=== PATIENT | male | born 1990 | race Caucasian/White ===

== ENCOUNTER 2024-01-12 09:46 | Emergency (ER) | payer OTHER, SELFPAY ==
--- NOTE | 2024-01-12 10:40 | ED.GENMED ---
History of Present Illness
General
Chief Complaint: Overdose Unintentional
Source: patient
Exam Limitations: none
Time Seen by Provider: 01/12/24 10:21
Travel History
Have you had any contact with someone who has COVID-19?: No
Do you have any symptoms of coronavirus? Fever > 100 degrees, chills, cough, shortness of breath, sore throat, loss of taste or smell, muscle aches, or headache?: No
History of Present Illness
History of Present Illness:
33-year-old male snorted a pill his friend gave him for pain relief and was found in his car to be unresponsive. Medics gave Narcan and he woke up. He notes he feels very anxious currently and nauseous. He denies chest pain or shortness of
breath. Remote history of IV drug abuse but states he has not used in 7 or 8 years.
Phy Exam
Physical Exam
Physical Exam:
General: Well-appearing male no acute respiratory distress
HEENT: Normocephalic atraumatic
Heart: Regular rate and rhythm no murmurs
Lungs: Clear no wheeze or rales
Abdomen: Soft nontender
Extremities: No cyanosis
Course
Orders/Labs/Results
Orders:
Orders
01/12/24 09:54
Ondansetron Injectable [Zofran] 4 mg .ROUTE .[facility]
01/12/24 10:08
EKG [Electrocardiogram (*1)] Urgent
Reason for Study: Chest Pain
EKG- Treatment ONCE
01/12/24 10:18
Alcohol Urgent
Complete Blood Count/With Diff Urgent
Comprehensive Metabolic Panel Urgent
Urine Drug Abuse Screen Urgent
Date Specimen was Collected: 01/12/24
Time Specimen was Collected: 10:08
01/12/24 11:14
Ondansetron Injectable [Zofran] 4 mg IV NOW STA
01/12/24 11:55
Famotidine [Pepcid] 20 mg IV NOW STA
Lorazepam [Ativan] 1 mg IV NOW STA
Abnormal Lab Results
01/12/24
10:18
Abs Immat Gran (auto) 0.2 H 10^3/uL
(0-0.05)
Absolute Neuts (auto) 7.1 H 10^3/uL
(1.4-6.5)
Immature Gran % 1.5 H %
(0-0.5)
Glucose 224 H mg/dl
(70-99)
ALT 62 H U/L
(0-50)
U Marijuana (THC) Screen Positive H
(Negative)
01/12/24 10:18
01/12/24 10:18
Vital Signs
Initial and Last Documented VS:
Initial Vital Signs
Resp
20
01/12/24 09:50
Last Documented Vital Signs
Pulse Resp Pulse Ox
89 17 99
01/12/24 10:45 01/12/24 10:45 01/12/24 10:45
MDM/Problems Addressed
Differential Diagnosis Includes:
Unintentional overdose likely opiate medication of some type. Reversed with Narcan vital signs stable but nauseous. Will check labs EKG shows sinus rhythm without ischemic changes.
*Critical Care Note
Total Time (30-74mins, 75-104mins- exclusive of procedures): Not Applicable
Update Note
Update Note:
Patient reexamined stable. He did require another dose of Zofran but vital signs are stable and awake and alert he is walked to the bathroom several times. Suspect opiate overdose reversed by Narcan.
ED Attending Note
-
Portions of this chart may have been created with voice recognition software.� Occasional wrong word or��sound alike� substitutions may have occurred due to the inherent limitations of voice recognition software.
Discharge Plan
Departure
Patient Disposition: Home (Routine Discharge)
Date of Disposition: 01/12/24
Time of Disposition: 13:18
Patient with high blood pressure during this ER visit?: No
Discharge Problem:
Accidental overdose
Instructions: Accidental Overdose (DC)
Referrals:
Jeremy Castle MD [Family Provider] -
Interventions
Interventions:
*Risk Screen - Suicide Last Done: 01/12/24 10:00
*General Assessment Last Done: 01/12/24 10:00
*Neglect/Abuse Screening Last Done: 01/12/24 10:00
ED- Fall Risk Assessment Last Done: 01/12/24 10:00
*ED COVID-19 Vaccine History Last Done: 01/12/24 10:00
Discharge Date and Time
Print Language: JORDANIAN
[2024-01-12 10:45] LABS: % Basophils 0.5 % (0-2); % Eosinophils 0.2 % (0-6); % Immature Granulocytes 1.5 % (0-0.5); % Lymphocytes 20.6 % (20.5-51.1); % Monocytes 4.1 % (1.7-9.3); % Neutrophils 73.1 % (42.2-75.2); Absolute Basophils 0.1 10^3/uL (0-0.2); Absolute Immature Granulocytes 0.2 10^3/uL (0-0.05); Absolute Monocytes 0.4 10^3/uL (0.1-0.6); Absolute Neutrophils 7.1 10^3/uL (1.4-6.5); Hematocrit 43.8 % (39.0-52.0); Hemoglobin 15.4 g/dL (13.0-18.0); Mean Corp Hgb Conc. 35.2 g/dL (33.0-37.0); Mean Corpuscular Hgb 30.1 pg (27.0-31.0); Mean Corpuscular Volume 85.7 fL (80.0-94.0); Mean Platelet Volume 9.7 fL (7.4-10.4); Nucleated Red Blood Cells % 0 % (-); Platelet Count 260 10^3/uL (130-400); Red Blood Cell Count 5.11 10^6/uL (4.70-6.10); Red Cell Dist. Width 12.7 % (11.5-14.5); White Blood Cell Count 9.7 10^3/uL (4.8-10.8)
[2024-01-12 10:58] LABS: ALT (SGPT) 62 U/L (0-50); AST (SGOT) 31 U/L (17-59); Albumin 4.6 g/dl (3.5-5.0); Alkaline Phosphatase 85 U/L (38-126); Blood Urea Nitrogen 14 mg/dl (9-20); Calcium 9.4 mg/dl (8.4-10.2); Carbon Dioxide 27 mmol/L (22-30); Chloride 105 mmol/L (98-107); Glucose 224 mg/dl (70-99); Sodium 139 mmol/L (135-145); Total Bilirubin 0.3 mg/dl (0.2-1.3); Total Protein 7.1 g/dl (6.3-8.2); eGFR > 60.00
[2024-01-12 11:02] LABS: Alcohol None Detected; Amphetamines Negative (Negative); Barbiturates Negative (Negative); Benzodiazepines Negative (Negative); Buprenorphine Negative (Negative); Cocaine Negative (Negative); Marijuana Positive (Negative); Methadone Negative (Negative); Methamphetamines Negative (Negative); Opiates Negative (Negative); Phencyclidine Negative (Negative); Tricyclic Antidepressants Negative (Negative)
[2024-01-12] MEDS: ZOFRAN 4 MG IV (11:46)
[2024-01-12] MEDS: PEPCID 20 MG IV (12:01)
[2024-01-12 13:11] VITALS: BP 138/94
[2024-01-12 14:00] VITALS: BP 114/70
== END 2024-01-12 14:10 | disposition home or self-care (01) ==
LOC: EMR 09:46
PROVIDERS: EMERGENCY PHYSICIAN Emergency Medicine; FAMILY PHYSICIAN Family Medicine
DX: T50.901A Poisoning by unspecified drugs, medicaments and biological substances, accidental (unintentional), initial encounter (principal); X58.XXXA Exposure to other specified factors, initial encounter
CPT/HCPCS: 99283; 80053; 80306; 82077; 85025; 93005